=== PATIENT | male | born 1955 | race Caucasian/White ===

== ENCOUNTER 2020-02-18 13:59 | Emergency (ER) | payer OTHER ==
[~2020-02-18] VITALS: Ht 193 cm; Wt 104.3 kg
[2020-02-18 14:11] VITALS: BP 137/80
[2020-02-18] MEDS ORDERED: LISINOPRIL2.5 MG PO (14:13)
[2020-02-18] MEDS ORDERED: FLEXERIL PO (14:13)
[2020-02-18] MEDS ORDERED: NORVASC 2.5 MG2.5 M1 PO (14:13)
[2020-02-18] MEDS ORDERED: ELIQUIS2.5 MG PO (14:14)
[2020-02-18] MEDS ORDERED: KEFLEX500 M1 PO (15:01)
== END 2020-02-18 15:09 | disposition home or self-care (01) ==
LOC: M.ERS 13:59
DX: S30.861A Insect bite (nonvenomous) of abdominal wall, initial encounter (principal); L03.311 Cellulitis of abdominal wall; I10 Essential (primary) hypertension; F17.210 Nicotine dependence, cigarettes, uncomplicated

== ENCOUNTER 2020-04-01 11:45 | Emergency (ER) | payer OTHER ==
[~2020-04-01] VITALS: Ht 193 cm; Wt 104.3 kg
[~2020-04-01 11:45] MED LIST: ELIQUIS2.5 MG PO; FLEXERIL PO; KEFLEX500 M1 PO; LISINOPRIL2.5 MG PO; NORVASC 2.5 MG2.5 M1 PO
[2020-04-01] MEDS ORDERED: NEURONTIN 300M300 M2 PO (11:58)
[2020-04-01] MEDS ORDERED: ELIQUIS2.5 MG PO (12:10)
[2020-04-01] MEDS ORDERED: PERCOCET 5-3251 EACH PO (12:41)
[2020-04-01 12:57] VITALS: BP 142/78
== END 2020-04-01 12:57 | disposition home or self-care (01) ==
LOC: M.ERS 11:45
DX: S42.011A Anterior displaced fracture of sternal end of right clavicle, initial encounter for closed fracture (principal); I10 Essential (primary) hypertension; V29.9XXA Motorcycle rider (driver) (passenger) injured in unspecified traffic accident, initial encounter; Y93.89 Activity, other specified; Y92.89 Other specified places as the place of occurrence of the external cause; Y99.8 Other external cause status

== ENCOUNTER 2020-05-22 15:42 | Emergency (ER) | payer OTHER ==
[~2020-05-22] VITALS: Ht 193 cm; Wt 90.7 kg
[~2020-05-22 15:42] MED LIST changes: +NEURONTIN 300M300 M2 PO; +PERCOCET 5-3251 EACH PO
[2020-05-22 16:44] LABS: ABSOLUTE BASOPHILS 0.1 thou/uL (0.0-0.2); ABSOLUTE EOSINOPHILS 0.2 thou/uL (0.0-0.7); ABSOLUTE LYMPHOCYTES 2.2 thou/uL (0.8-5.3); ABSOLUTE MONOCYTES 0.8 thou/uL (0.0-1.2); ABSOLUTE NEUTROPHILS 5.6 thou/uL (1.6-8.1); BASOPHILS 1.5 %; EOSINOPHILS 1.8 %; HEMATOCRIT 45.6 % (42.0-52.0); HEMOGLOBIN 15.4 gm/dL (14.0-18.0); LYMPHOCYTES 24.5 %; MCH 31.3 pg (26.0-34.0); MCHC 33.7 g/dL (28.0-37.0); MCV 92.7 fL (80.0-100.0); MONOCYTES 8.6 %; MPV 8.1 fl. (7.2-11.1); NUCLEATED RBCS 0 /100WBC; PLATELET COUNT* 257 thou/uL (150-400); POLYS 63.6 %; RBC 4.92 mil/uL (4.50-6.00); RDW-CV 13.9 % (10.5-14.5); WBC 8.8 thou/uL (4.0-11.0)
[2020-05-22 16:57] LABS: CALCIUM 8.2 mg/dL (8.5-10.1); CREATININE 0.9 mg/dL (0.6-1.3); POTASSIUM 3.9 mmol/L (3.5-5.1)
[2020-05-22 17:01] LABS: ALBUMIN 3.4 g/dL (3.4-5.0); TOTAL BILIRUBIN 0.8 mg/dL (<0.1-1.0); TOTAL PROTEIN 7.6 g/dL (6.4-8.2)
[2020-05-22 21:50] VITALS: BP 140/72
--- NOTE | 2020-05-25 08:42 | EKG ---
[place] [address] ELECTROCARDIOGRAM REPORT Name: MAISHA MONTEZ Room: [facility]#: [id number] Admission: 05/22/20 Attend Phys: Discharge: 05/22/20 Date of : 55 Date of Service: 05/22/20 190 Report #: [id number] THIS REPORT FOR: //name// [facility] ED Test Date: 2020-05-22 Test Time: 19:06:28 Pat Name: MAISHA VENCESONS Department: Room: Gender: Road Design Engineer: [facility] : 1955 Requested By: Uma Hernandes Order Number: [id number] Reading MD: Carlos Christian Measurements Intervals [place] Rate: 71 P: 6 AL: 182 QRS: -41 QRSD: 120 T: 83 QT: 426 QTc: 463 Interpretive Statements Sinus rhythm Nonspecific IVCD with LAD Left ventricular hypertrophy Anterior Q waves, possibly due to LVH Baseline wander in lead(s) V2 No previous ECG available for comparison Electronically Signed On 05-25-2020 8:42:24 FINANCIAL ANALYST by Carlos Christian [email or web address] <ELECTRONICALLY SIGNED> By: Alana Christian MD, [facility] 05/25/20 0842 190 05 Alana Christian MD, [facility] /EPI
== END 2020-05-22 21:50 | disposition short-term general hospital (02) ==
LOC: M.ERS 15:42
PROVIDERS: Physician Assistant
DX: R79.89 Other specified abnormal findings of blood chemistry (principal); M25.511 Pain in right shoulder; R07.89 Other chest pain; R07.0 Pain in throat; C32.9 Malignant neoplasm of larynx, unspecified; I10 Essential (primary) hypertension; F90.9 Attention-deficit hyperactivity disorder, unspecified type; Z20.828 Contact with and (suspected) exposure to other viral communicable diseases; Z79.899 Other long term (current) drug therapy; W19.XXXA Unspecified fall, initial encounter; Y93.89 Activity, other specified; Y92.89 Other specified places as the place of occurrence of the external cause; Y99.8 Other external cause status